=== PATIENT | female | born 1960 | race Caucasian/White ===

== ENCOUNTER → 2016-10-25 | Outpatient (CLI) | payer BC ==
[~2016-10-25] MED LIST: CHANTIX 1MG1 MG PO; DEXILANT60 MG PO; ZOCOR 20MG20 MG PO
== END ==
LOC: COL.RAD 10:24
DX: R16.0 Hepatomegaly, not elsewhere classified (principal); K76.0 Fatty (change of) liver, not elsewhere classified; Z90.49 Acquired absence of other specified parts of digestive tract

== ENCOUNTER 2017-01-11 07:48 | Day surgery (SDC) | payer BC ==
[~2017-01-11] VITALS: Ht 170.2 cm; Wt 84.2 kg
[2017-01-11 08:21] VITALS: BP 133/93; PULSE 111; TEMP 98.6
[2017-01-11] MEDS ORDERED: ZOCOR 20MG20 MG PO (08:35)
[2017-01-11] MEDS ORDERED: CHANTIX 1MG1 MG PO (08:35)
[2017-01-11] MEDS ORDERED: DEXILANT60 MG PO (08:36)
[2017-01-11 10:15] VITALS: BP 125/88; PULSE 84
[2017-01-11 10:16] VITALS: BP 128/86; PULSE 91; TEMP 98
== END 2017-01-11 10:30 | disposition home or self-care (01) ==
LOC: SDCO 07:48
DX: K21.9 Gastro-esophageal reflux disease without esophagitis (principal); D12.5 Benign neoplasm of sigmoid colon; K57.30 Diverticulosis of large intestine without perforation or abscess without bleeding; R19.7 Diarrhea, unspecified; K83.8 Other specified diseases of biliary tract; K76.0 Fatty (change of) liver, not elsewhere classified; F17.210 Nicotine dependence, cigarettes, uncomplicated; M19.90 Unspecified osteoarthritis, unspecified site; K44.9 Diaphragmatic hernia without obstruction or gangrene; Z90.710 Acquired absence of both cervix and uterus; Z90.49 Acquired absence of other specified parts of digestive tract; Z86.018 Personal history of other benign neoplasm; E78.5 Hyperlipidemia, unspecified; R10.11 Right upper quadrant pain; E78.00 Pure hypercholesterolemia, unspecified; Z86.19 Personal history of other infectious and parasitic diseases
CPT/HCPCS: OP; J2250; J2704; J7030

== ENCOUNTER 2019-02-13 06:01 | Day surgery (SDC) | payer BC ==
[~2019-02-13] VITALS: Ht 170.2 cm; Wt 84.0 kg
[2019-02-13] MEDS ORDERED: PROTONIX 40MG T40 MG PO (06:13)
[2019-02-13 06:41] VITALS: BP 136/80; PULSE 75; TEMP 98.6
[2019-02-13 07:19] VITALS: BP 108/68; PULSE 71
--- NOTE | 2019-02-13 07:19 | NUR ---
Patient returns to GI bay 1 per cart and transfers from cart to recliner with two person assist. IV fluids infusing RH. Denies difficulty swallowing or pain. Temp 97.6 Requests diet Coke and given. Call light in reach.
[2019-02-13 07:34] VITALS: BP 117/69; PULSE 64
--- NOTE | 2019-02-13 07:34 | NUR ---
Sipping on diet Coke and denies pain or nausea.
[2019-02-13 07:49] VITALS: BP 151/89; PULSE 70
--- NOTE | 2019-02-13 07:49 | NUR ---
Room air sats 99%. Resting.
--- NOTE | 2019-02-13 07:55 | NUR ---
Dr. Aguilar here and talks with the patient. All questions answered. IV discontinued and is able to dress self.
--- NOTE | 2019-02-13 08:13 | NUR ---
Patient dismissed to home driven by friend and taken to the patient entrance per wheelchair and assisted into car by Mariely QUEEN with instructions in hand.
[2019-02-13 09:51] VITALS: BP 110/70; PULSE 71
== END 2019-02-13 08:13 | disposition home or self-care (01) ==
LOC: SDCO 06:01
DX: K22.70 Barrett's esophagus without dysplasia (principal); K21.9 Gastro-esophageal reflux disease without esophagitis; Z79.899 Other long term (current) drug therapy; K44.9 Diaphragmatic hernia without obstruction or gangrene; M19.90 Unspecified osteoarthritis, unspecified site; F17.210 Nicotine dependence, cigarettes, uncomplicated; Z88.5 Allergy status to narcotic agent; Z88.2 Allergy status to sulfonamides; Z88.8 Allergy status to other drugs, medicaments and biological substances; E78.00 Pure hypercholesterolemia, unspecified; K76.0 Fatty (change of) liver, not elsewhere classified; F41.9 Anxiety disorder, unspecified; Z90.49 Acquired absence of other specified parts of digestive tract; Z90.710 Acquired absence of both cervix and uterus
CPT/HCPCS: J2704; J7030

== ENCOUNTER 2019-12-21 21:14 | Emergency (ER) | payer BC ==
[~2019-12-21] VITALS: Ht 170.2 cm; Wt 79.5 kg
[~2019-12-21 21:14] MED LIST changes: +PROTONIX 40MG T40 MG PO
[2019-12-21 21:25] VITALS: BP 154/82; TEMP 98.9
[2019-12-21] MEDS ORDERED: MONODOX100 PO (21:48)
[2019-12-21 22:00] VITALS: PULSE 78
== END 2019-12-21 22:00 | disposition home or self-care (01) ==
LOC: COL.ER 21:14
DX: T63.301A Toxic effect of unspecified spider venom, accidental (unintentional), initial encounter (principal); K21.9 Gastro-esophageal reflux disease without esophagitis; F17.210 Nicotine dependence, cigarettes, uncomplicated; Y92.003 Bedroom of unspecified non-institutional (private) residence as the place of occurrence of the external cause